=== PATIENT | male | born 1940 | race Caucasian/White ===

== ENCOUNTER 2019-10-10 17:37 | Emergency (ER) | payer MEDICARE, BC ==
--- NOTE | 2019-10-10 17:45 | EDM.PDOC ---
ED HPI GENERAL MEDICAL PROBLEM - General Chief Complaint: Lower Extremity Injury/Pain Stated Complaint: Right leg pain and swelling Time Seen by Provider: 10/10/19 17:40 Source of Information: Reports: Patient, Family (), Old Records ([facility] chart/EMR although paper chart could not be found.), Other ([facility] EMR) History Limitations: Reports: No Limitations - History of Present Illness INITIAL COMMENTS - FREE TEXT/NARRATIVE: Patient was brought to the emergency room via private automobile by his for evaluation of a 5-day history of 5/10 right leg pain and swelling mostly in the calf region while standing and walking. Note that he is status post right total knee arthroplasty on 09/18/2019 and was not placed on any anticoagulation therapy other than his aspirin. Physical therapy has been progressing well with no history of local signs of infection, drainage, injury, etc.. The patient did take Tylenol at 8 AM this morning with no other treatment to this point. The patient denies any chest pain/pressure, heart flutter, dizziness, orthostasis, orthopnea, diaphoresis, paresthesias, recent decreased exercise tolerance, or any other anginal-type symptoms. No recent history of abdominal pain, heartburn, nausea, diarrhea, melena, gross hematochezia, or any food intolerance, including fatty foods, etc.. The patient also denies any recent fever, cough, wheezing, dyspnea, etc.. Onset: Gradual Onset Date: 10/06/19 Duration: Getting Worse, Intermittent Location: Reports: Lower Extremity, Right. Denies: Head, Face, Neck, Chest, Abdomen, Back, Pelvis, Upper Extremity, Left, Upper Extremity, Right, Lower Extremity, Left, Radiates to Quality: Reports: Throbbing Severity: Moderate Improves with: Reports: Rest Worsens with: Reports: Movement Context: Reports: Other (As above). Denies: Sick Contact, Trauma Associated Symptoms: Denies: Confusion, Chest Pain, Diaphoresis, Fever/Chills, Headaches, Loss of Appetite, Malaise, Nausea/Vomiting, Rash, Seizure, Shortness of Breath, Syncope, Weakness Treatments WIRE CHARGER: Reports: Acetaminophen Right Knee Pain Score (Numeric/FACES): 5 (And calf) - Related Data Allergies Allergy/AdvReac Type Severity Reaction Status Date / Time Penicillins Allergy Hives Verified 10/10/19 17:40 Home Meds: Home Meds Acetaminophen [Tylenol] 650 mg PO Q6H PRN 10/10/19 [History] Aspirin [Aspirin EC] 81 mg PO BID 10/10/19 [History] Calcium Carbonate/Vitamin D3 [Calcium 500 + Vit D 400] 1 tab PO DAILY 10/10/19 [History] Magnesium Oxide 400 mg PO DAILY 10/10/19 [History] Meloxicam 15 mg PO DAILY 10/10/19 [History] Mometasone Furoate [Nasonex] 1 spray NASBOTH ASDIRECTED PRN 10/10/19 [History] Pumpkin Seed Oil/Saw Keenes [Saw Keenes 160 mg Softgel] 160 mg PO BID 10/10/19 [History] Simvastatin 20 mg PO DAILY 10/10/19 [History] hydroCHLOROthiazide [Hydrochlorothiazide] 25 mg PO DAILY 10/10/19 [History] rOPINIRole [Requip] 1 mg PO Q6HR PRN 10/10/19 [History] Past Medical History HEENT History: Reports: Allergic Rhinitis, Cataract, Impaired Vision, Other (See Below). Denies: Glaucoma, Hard of Hearing, Macular Degeneration, Otitis Media, Retinal Detachment Other HEENT History: No surgery for his cataracts to this point. He does wear glasses. Cardiovascular History: Reports: None, High Cholesterol, Hypertension. Denies: Afib, Arrhythmia, CAD, Heart Failure, Heart Murmur, [place], PVD, Syncope Respiratory History: Reports: Intubation, Previous, Other (See Below). Denies: Asthma, Bronchitis, Recurrent, COPD, Intubation, Difficult, PE, Pneumonia, Recurrent, Pneumothorax, Sleep Apnea, TB Other Respiratory History: Restless leg syndrome. Gastrointestinal History: Reports: Colon Polyp, Diverticulosis, GERD, Other (See Below). Denies: Celiac Disease, Cholelithiasis, Chronic Constipation, Chronic Diarrhea, Fecal Incontinence, Gastritis, GI Bleed, Hepatitis, Irritable Bowel Syndrome, Jaundice, Pancreatitis, PUD Other Gastrointestinal History: Colonic polyps x2 excised via colonoscopy in 2016 as below. Sigmoid diverticulosis. Genitourinary History: Reports: BPH, Renal Calculus, Other (See Below). Denies: Acute Renal Failure, Chronic Renal Insuffiency, Retention, Urinary, STD, Urina ry Incontinence, UTI, Recurrent Other Genitourinary History: History of recurrent urolithiasis x2 both with spontaneous passage. Benign bilateral renal cysts. Microscopic he maturiabenign. Musculoskeletal History: Reports: Arthritis, Back Pain, Chronic, Fracture, Osteoarthritis, Other (See Below). Denies: Gout, Neck Pain, Chronic, Osteoporosis, RA, SLE Other Musculoskeletal History: Left hip fracture in 2015. Left wrist fracture at about age 28. 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 Mild scoliosis. Neurological History: Reports: Other (See Below). Denies: Cerebral Aneurysms, Concussion, CVA, Headaches, Chronic, Head Trauma, Migraines, MS, Neuropathy, Peripheral, Parkinson's, Seizure, TIA Other Neuro History: Restless leg syndrome as above. Psychiatric History: Reports: None. Denies: Abuse, Victim of, ADD, ADHD, Addiction, Anxiety, Depression, Psych Hospitalization(s), PTSD, Suicide Attempt, Suicidal Ideation Endocrine/Metabolic History: Reports: Hypomagnesemia, Obesity/BMI 30+. Denies: Diabetes, Type I, Diabetes, Type II, Diabetes Mellitus, Type 3c, Hypothyroidism, IDDM Hematologic History: Reports: None. Denies: Anemia, Blood Transfusion(s), Iron Deficiency Immunologic History: Reports: None. Denies: AIDS, HIV, SLE Oncologic (Cancer) History: Reports: Malignant Melanoma, Other (See Below). Denies: Basal Cell Carcinoma, Colon, Hodgkin's Lymphoma, Leukemia, Lymphoma, Metastatic, Non-Hodgkin's Lymphoma, Prostate, Squamous Cell Carcinoma Other Oncologic History: Melanoma in the posterior back region at the belt line with excision as below but no chemotherapy, etc. Dermatologic History: Reports: Melanoma, Other (See Below). Denies: Eczema, Psoriasis Other Dermatologic History: Melanoma as above. - Infectious Disease History Infectious Disease History: Reports: Chicken Pox, Shingles (Herpes zoster in left scapular region in early 1999's.). Denies: C-Difficile, Measles, Meningitis, Mononucleosis, MRSA, Mumps, Pertussis (Whooping Cough), Rheumatic Fever, Rubella, Scarlet Fever, TB, VRE - Past Surgical History Head Surgeries/Procedures: Reports: None HEENT Surgical History: Reports: Oral Surgery, Other (See Below). Denies: Adenoidectomy, Cataract Surgery, Detached Retina, Eye Surgery, Laser Surgery, LASIK, Naso-Sinus Surgery, Tonsillectomy Other HEENT Surgeries/Procedures: Meraux teeth extraction x4 in his 60s. Cardiovascular Surgical History: Reports: None. Denies: Varicose Respiratory Surgical History: Reports: None. Denies: Thoracentesis GI Surgical History: Reports: Appendectomy, Colonoscopy, Hernia, Inguinal, Polypectomy, Other (See Below). Denies: Cholecystectomy, EGD, Hernia, Abdominal, Hernia Repair/Other Other GI Surgeries/Procedures: Appendectomy 1954. Last colonoscopy on 07/14/2015 with polypectomy from the rectal vault and sigmoid region at that time. Previous colonoscopy on 05/13/2010. Bilateral inguinal hernia repair in 2003. Pilonidal cyst excision in 1961. Male Surgical History: Reports: Other (See Below). Denies: Circumcision, Vasectomy Other Male Surgeries/Procedures: Cystoscopy on 10/12/2015. Endocrine Surgical History: Reports: None. Denies: Thyroid Biopsy Neurological Surgical History: Reports: None. Denies: C-Spine, Discectomy, Laminectomy, Lumbar Spine, Sacral Spine, Spinal Fusion, Thoracic Spine, Vertebroplasty Musculoskeletal Surgical History: Reports: Hip Replacement, Joint Replacement, Knee Replacement, ORIF, Other (See Below). Denies: Arthroscopic Procedure, Carpal Tunnel, Ganglion Cyst, Shoulder Surgery Other Musculoskeletal Surgeries/Procedures:: Initial ORIF of left hip fracture in 2014 with subsequent hardware removal and the left hip tip on 08/30/2015. Left total knee arthroplasty on 04/08/2013. Right total knee arthroplasty on 09/18/2019. Oncologic Surgical History: Reports: Other (See Below) Other Oncologic Surgeries/Procedures: Melanoma excision in 2001 from the back region as above. Dermatological Surgical History: Reports: Other (See Below) Other Dermatological Surgeries/Procedures: Melanoma excision as above - Past Imaging History Past Imaging History: Reports: CAT Scan (CT of the abdomen and pelvis on 10/12/2015 and 10/04/2015.), MRI (Lumbar spine on 11/22/2011.), Ultrasound (Bilateral renal ultrasounds on 10/26/2017 and 10/06/2016.), Venous Doppler (Left leg on 10/28/2014.) Social & Family History - Tobacco Use Smoking Status *Q: Never Smoker Tobacco Use Within Last Twelve Months: No Used Tobacco, but Quit: No Smoking Cessation Information Provided To Patient: No Second Hand Smoke Exposure: No Second Hand Smoke Education Provided: No - Caffeine Use Caffeine Use: Reports: Soda (1 soda per day). Denies: Coffee, Energy Drinks, Tea - Alcohol Use Alcohol Use History: Yes Days Per Week of Alcohol Use: 0 Number of Drinks Per Day: 1 Number of Drinks Per Day Comment: Usually wine once a month. No previous DWIs, problems with alcohol abuse, etc. Total Drinks Per Week: 0 Alcohol Use in Last Twelve Months: Yes Alcohol Use Frequency: Monthly - Recreational Drug Use Recreational Drug Use: No Drug Use in Last 12 Months: No Recreational Drug Type: Denies: Amphetamines (Speed), Cocaine, Heroin, Inhalants (Glues, Solvents, Aerosols), LSD (Acid), Marijuana/Hashish, Methamphetamine, Oxycodone - Living Situation & Occupation Living situation: Reports: (1963, 2 children), with Family () Occupation: Retired (Semiretired [employer].) Review of Systems - Review of Systems Review Of Systems: Comprehensive ROS is negative, except as noted in HPI. ED EXAM, GENERAL - Physical Exam Exam: See Below Exam Limited By: No Limitations General Appearance: Alert, WD/WN, No Apparent Distress Head: Atraumatic, Normocephalic. No: Facial Swelling, Facial Tenderness, Sinus Tenderness Neck: Supple, Non-Tender, Full Range of Motion, Carotid Bruit (Mild bilateral carotid bruits). No: Lymphadenopathy (L), Lymphadenopathy (R), Thyromegaly Respiratory/Chest: No Respiratory Distress, Lungs Clear, Normal Breath Sounds, No Accessory Muscle Use, Chest Non-Tender. No: Pleural Rub, Retractions Cardiovascular: Normal Peripheral Pulses, Regular Rate, Rhythm, No Gallop, No JVD, No Murmur, No Rub. No: No Edema (Dependent edema as below), Gallop/S3, Gallop/S4, Friction Rub Peripheral Pulses: 2+: Radial (L), Radial (R), Dorsalis Pedis (L), Dorsalis Pedis (R) GI/Abdominal: Normal Bowel Sounds, Soft, Non-Tender, No Organomegaly, No Distention, No Abnormal Bruit, No Mass, Pelvis Stable, Other (Obese). No: Guarding (Male) Exam: Deferred Rectal (Males) Exam: Deferred Back Exam: Full Range of Motion, Other (Mild scoliosis). No: CVA Tenderness (L), CVA Tenderness (R), Muscle Spasm, Paraspinal Tenderness, Vertebral Tenderness Extremities: Non-Tender (Mild tenderness of the right calf and knee while standing but no significant palpation pain), Normal Capillary Refill, Pedal Edema (Mild +1 leg swelling and edema of the right leg with additional normal postoperative ecchymosis), Joint Swelling (Mild right knee effusion), Leg Pain (Normal postoperative), Limited Range of Motion (Right knee secondary to recent surgery), Redness (Minimal left knee and surrounding area with no lymphangitis or sign of infection as above.). No: Amy's Sign, Increased Warmth (No local signs of infection or evidence of dehiscence, etc.) Neurological: Alert, Oriented, CN II-XII Intact, Normal Cognition, No Motor/Sensory Deficits, Abnormal Gait (Normal postoperative favoring of the right knee) Psychiatric: Normal Affect, Normal Mood Skin Exam: Ecchymosis (Normal postoperative right leg), Erythema (Borderline right knee as above), Wound/Incision (Well-healed right knee incision). No: Diaphoretic, Increased Warmth Lymphatic: No Adenopathy Course - Vital Signs Last Recorded V/S: Last Vital Signs Temp 36.3 C 10/10/19 17:45 Pulse 88 10/10/19 17:45 Resp 18 10/10/19 17:45 BP 168/88 H 10/10/19 17:45 Pulse Ox 100 10/10/19 17:45 Vital Signs - 24 hr 10/10/19 10/10/19 10/10/19 17:45 18:00 18:45 Temperature [ 36.3 C 36.2 C Temporal] Pulse, 88 88 92 Peripheral [ Right Pulse Oximetry] Respiratory 18 20 20 Rate Blood Pressure 168/88 H 157/83 H 164/91 H [Right Upper Arm] O2 Sat by Pulse 100 97 98 Oximetry - Orders/Labs/Meds Orders: Active Orders 24 hr Category Date Time Status Obtain Past Medical Record [OM.PC] Routine Oth 10/10/19 17:46 Active Labs: Laboratory Tests 10/10/19 10/10/19 10/10/19 Range/Units 18:00 18:00 18:00 WBC 6.3 (4.0-10.2) K/uL RBC 4.30 L (4.33-5.41) M/uL Hgb 12.9 L D (13.1-16.8) g/dL Hct 39.2 (39.0-49.0) % MCV 91.2 (84.0-98.0) fL MCH 30.0 (28.2-33.3) pg MCHC 32.9 (31.7-36.0) g/dL RDW 13.4 (11.2-14.1) % Plt Count 312 D (150-350) K/uL Neut % (Auto) 48.7 (45.0-80.0) % Lymph % (Auto) 33.1 (10.0-50.0) % Lake % (Auto) 14.7 H (2.0-14.0) % Eos % (Auto) 3.2 (0.0-5.0) % Baso % (Auto) 0.3 (0.0-2.0) % Neut # (Auto) 3.09 (1.40-7.00) K/uL Lymph # (Auto) 2.10 (0.50-3.50) K/uL Lake # (Auto) 0.93 (0.00-1.00) K/uL Eos # (Auto) 0.20 (0.00-0.50) K/uL Baso # (Auto) 0.02 (0.00-0.20) K/uL PT 10.4 (9.5-12.0) SEC INR 1.0 APTT 27.9 (24.5-32.8) SEC D-Dimer, Quantitative (0-400) ng/mL Sodium 132 L (136-145) mmol/L Potassium 3.7 (3.5-5.1) mmol/L Chloride 96 L (98-107) mmol/L Carbon Dioxide 27.6 (21.0-32.0) mmol/L BUN 18 (7-18) mg/dL Creatinine 0.86 (0.51-1.17) mg/dL Est Cr Clr Drug Dosing 65.17 mL/min Estimated GFR (MDRD) > 60 mL/min Glucose 101 (74-106) mg/dL Calcium 9.0 (8.5-10.1) mg/dL Total Bilirubin 0.6 (0.2-1.0) mg/dL AST 19 (15-37) U/L ALT 23 (12-78) U/L Alkaline Phosphatase 71 (46-116) IU/L Total Protein 7.5 (6.4-8.2) g/dL Albumin 3.3 L (3.4-5.0) g/dL 10/10/19 Range/Units 18:00 WBC (4.0-10.2) K/uL RBC (4.33-5.41) M/uL Hgb (13.1-16.8) g/dL Hct (39.0-49.0) % MCV (84.0-98.0) fL MCH (28.2-33.3) pg MCHC (31.7-36.0) g/dL RDW (11.2-14.1) % Plt Count (150-350) K/uL Neut % (Auto) (45.0-80.0) % Lymph % (Auto) (10.0-50.0) % Lake % (Auto) (2.0-14.0) % Eos % (Auto) (0.0-5.0) % Baso % (Auto) (0.0-2.0) % Neut # (Auto) (1.40-7.00) K/uL Lymph # (Auto) (0.50-3.50) K/uL Lake # (Auto) (0.00-1.00) K/uL Eos # (Auto) (0.00-0.50) K/uL Baso # (Auto) (0.00-0.20) K/uL PT (9.5-12.0) SEC INR APTT (24.5-32.8) SEC D-Dimer, Quantitative 3500 H (0-400) ng/mL Sodium (136-145) mmol/L Potassium (3.5-5.1) mmol/L Chloride (98-107) mmol/L Carbon Dioxide (21.0-32.0) mmol/L BUN (7-18) mg/dL Creatinine (0.51-1.17) mg/dL Est Cr Clr Drug Dosing mL/min Estimated GFR (MDRD) mL/min Glucose (74-106) mg/dL Calcium (8.5-10.1) mg/dL Total Bilirubin (0.2-1.0) mg/dL AST (15-37) U/L ALT (12-78) U/L Alkaline Phosphatase (46-116) IU/L Total Protein (6.4-8.2) g/dL Albumin (3.4-5.0) g/dL Meds: None - Radiology Interpretation Free Text/Narrative:: None Departure - Departure Time of Disposition: 19:00 Disposition: DC/Tfer to Acute Hospital 02 Condition: Good Clinical Impression: D-dimer, elevated, Hyponatremia, Hypoalbuminemia Osteoarthritis Qualifiers: Osteoarthritis location: multiple joints Osteoarthritis type: primary Qualified Code(s): M89.49 - Other hypertrophic osteoarthropathy, multiple sites Hypertension Qualifiers: Hypertension type: essential hypertension Qualified Code(s): I10 - Essential (primary) hypertension Hyperlipidemia Qualifiers: Hyperlipidemia type: unspecified Qualified Code(s): E78.5 - Hyperlipidemia, unspecified - Discharge Information *PRESCRIPTION DRUG MONITORING PROGRAM REVIEWED*: Not Applicable *COPY OF PRESCRIPTION DRUG MONITORING REPORT IN PATIENT EL: Not Applicable Referrals: Omar Aranda MD [Primary Care Provider] - Forms: ED Department Discharge, Interfacility Transfer EMTALA Additional Instructions: 1. Have your drive you to the emergency room at [facility] for further evaluation, including venous Doppler study of the right leg and possible additional CTA of the chest. 2. Nothing to eat or drink until otherwise directed by your [place] providers 3. Follow up with your regular provider in 10-14 days as needed, if symptoms persist. Bring these discharge instructions with you to that visit.. 4. Otherwise follow-up with Dr. Fox, orthopedic surgeon at [facility] in [place], 30 scheduled on 10/31/2019. 5. Immediately after this visit verify that your cellular telephone's voicemail has been activated and is empty. Also verify that your home telephone's answering machine is operating properly and has space to receive messages. Note that it is sometimes necessary for us to be able to contact you at a later date to discuss your medical care. 6. Please remember that we are ALWAYS here for you and want to answer any questions you may have. Feel free to call the hospital any time and we call you back [facility]. Sepsis Event Note (ED) - Focused Exam Vital Signs: Vital Signs Temp Pulse Resp BP Pulse Ox 10/10/19 17:45 36.3 C 88 18 168/88 H 100 - Problem List & Annotations (1) D-dimer, elevated SNOMED Code(s): 363576556 Code(s): R79.89 - OTHER SPECIFIED ABNORMAL FINDINGS OF BLOOD CHEMISTRY Status: Acute Priority: High Onset Date: 10/10/19 Annotation/Comment:: Note 5-day history of increasing right leg, knee, and calf swelling and tenderness as above. Clinical exam negative for DVT, however note d-dimer elevation as above. Telephone consultation at 18:[address] Tinsley, ER physician at [facility] in [place], who does accept the patient for further evaluation, including probable venous Doppler studies of the right leg. Additional CTA of the chest per his discretion, however no clinical evidence of PE with excellent O2 sats in the emergency room. Private ambulance transfer with the patient's driving. The patient and his are aware that they may need to go to [facility], if there is a significant postoperative complication, although the patient was sent to [facility] per their request secondary to his normal provider being in that facility. (2) Osteoarthritis SNOMED Code(s): 669003940 Code(s): M19.90 - UNSPECIFIED OSTEOARTHRITIS, UNSPECIFIED SITE Status: Chronic Priority: High Annotation/Comment:: Note status post right total knee arthroplasty by Dr. Luevano, who was previously at [facility], with the patient wishing to follow him secondary to previous successful surgery of his left knee as above. No evidence of postop infection. Continue close follow-up by his orthopedic surgeon with next appointment already scheduled as per discharge instructions. Qualifiers: Osteoarthritis location: multiple joints Osteoarthritis type: primary Qualified Code(s): M89.49 - Other hypertrophic osteoarthropathy, multiple sites (3) Hyperlipidemia SNOMED Code(s): 47267377 Code(s): E78.5 - HYPERLIPIDEMIA, UNSPECIFIED Status: Chronic Priority: Medium Annotation/Comment:: Currently under therapy. Continue to observe closely by his regular providers. Qualifiers: Hyperlipidemia type: unspecified Qualified Code(s): E78.5 - Hyperlipidemia, unspecified (4) Hypertension SNOMED Code(s): 90126401 Code(s): I10 - ESSENTIAL (PRIMARY) HYPERTENSION Status: Chronic Priority: Medium Annotation/Comment:: Blood pressure somewhat elevated in the emergency room. Continue to observe closely by his regular providers. Qualifiers: Hypertension type: essential hypertension Qualified Code(s): I10 - Essential (primary) hypertension (5) Hypoalbuminemia SNOMED Code(s): 905603641 Code(s): E88.09 - OTH DISORDERS OF PLASMA-PROTEIN METABOLISM, NEC Status: Acute Priority: Medium Onset Date: 10/10/19 Annotation/Comment:: Observe for now (6) Hyponatremia SNOMED Code(s): 97842947 Code(s): E87.1 - HYPO-OSMOLALITY AND HYPONATREMIA Status: Acute Priority: Medium Onset Date: 10/10/19 Annotation/Comment:: Likely secondary to his hydrochlorothiazide. No clinical evidence of CHF. Observe for now. Continue to observe closely by his regular providers. - Problem List Review Problem List Initiated/Reviewed/Updated: Yes - My Orders Last 24 Hours: My Active Orders 10/10/19 17:46 Obtain Past Medical Record [OM.PC] Routine - Assessment/Plan Last 24 Hours: My Active Orders 10/10/19 17:46 Obtain Past Medical Record [OM.PC] Routine Assessment:: As above Plan: As above. Extensive precautions were given to the patient and his , who are in agreement with the treatment plan. See Patient Instructions for further treatment and plan.
[2019-10-10 18:24] LABS: CHLORIDE,CL 96 mmol/L (98-107); SODIUM,NA 132 mmol/L (136-145)
[2019-10-10 18:33] LABS: PTT,PARTIAL THROMBOPLSTIN TIME 27.9 SEC (24.5-32.8)
== END 2019-10-10 19:09 ==
LOC: LL.ED 17:37
DX: L76.32 Postprocedural hematoma of skin and subcutaneous tissue following other procedure (principal); R79.1 Abnormal coagulation profile; E87.1 Hypo-osmolality and hyponatremia; E88.09 Other disorders of plasma-protein metabolism, not elsewhere classified; M89.49 Other hypertrophic osteoarthropathy, multiple sites; I10 Essential (primary) hypertension; E78.5 Hyperlipidemia, unspecified; E78.00 Pure hypercholesterolemia, unspecified; M19.90 Unspecified osteoarthritis, unspecified site; E66.9 Obesity, unspecified; Z68.29 Body mass index [BMI] 29.0-29.9, adult; Z79.82 Long term (current) use of aspirin; Z79.899 Other long term (current) drug therapy
CPT/HCPCS: 36415; 80053; 85025; 85379; 85610; 85730; 99284